=== PATIENT | female | born 1985 ===

== ENCOUNTER 2018-03-30 16:09 | Emergency (ER) | payer MEDICAID, OTHER ==
[2018-03-30 16:09] VITALS: BMI 36.1
[2018-03-30 16:27] VITALS: BP 101/66; PULSE 51; RESP 16; O2SAT 100
[2018-03-30] MEDS ORDERED: Oxycodone/Acetaminophen 5/325 mg Tab PO STA (16:46)
--- NOTE | 2018-03-30 16:51 | ED PDOC ---
Upper Extremity Pain/Injury Time Seen by Provider: 03/30/18 16:43 Chief Complaint (Nursing): Finger,Hand,&Wrist Chief Complaint (Provider): Hand pain History Per: Patient History/Exam Limitations: no limitations Current Symptoms Are (Timing): Still Present Additional Complaint(s): 32 year old female presented to ED with jammed finger on right hand after playing with her children. Patient reports she is unable to bend the 5th finger due to pain. PCP: none provided Past Medical History Reviewed: Historical Data, Nursing Documentation, Vital Signs Vital Signs: Last Vital Signs Temp 97.9 F 03/30/18 16:22 Pulse 51 L 03/30/18 16:22 Resp 16 03/30/18 16:22 BP 101/66 03/30/18 16:22 Pulse Ox 100 03/30/18 16:22 - Medical History PMH: Arthritis Denies: Depression - Surgical History Surgical History: No Surg Hx - Family History Family History: States: Unknown Family Hx - Social History Current smoker - smoking cessation education provided: No Ex-Smoker (has not smoked in the last 12 months): Yes Alcohol: None Drugs: Denies - Immunization History Hx Tetanus Toxoid Vaccination: No Hx Influenza Vaccination: No Hx Pneumococcal Vaccination: No - Home Medications Home Medications: Ambulatory Orders Medication Instructions Recorded Acetaminophen/Codeine 1 tab PO Q6H PRN #12 tab 04/09/15 [Tylenol/Codeine 300 MG/30 MG] Ibuprofen 800 mg PO Q6 04/09/15 Cephalexin [Keflex] 500 mg PO TID #21 .8 06/14/15 Ibuprofen 600 mg PO Q6 #20 tab 06/14/15 oxyCODONE/Acetaminophen [Percocet 1 tab PO QID PRN #15 tab 05/04/16 5/325 mg Tab] Acetaminophen [Tylenol 325mg tab] 650 mg PO Q4 PRN #20 tab 06/22/16 Amoxicillin 875 mg PO BID #14 tablet 06/22/16 oxyCODONE/Acetaminophen [Percocet 1 ea PO Q6 PRN #10 tab 03/30/18 5/325 mg Tab] - Allergies Allergies/Adverse Reactions: Allergies Allergy/AdvReac Type Severity Reaction Status Date / Time shellfish derived Allergy Severe ANAPHYLAXIS Verified 06/22/16 12:41 ibuprofen [From Motrin] AdvReac VOMITING Verified 03/30/18 16:21 naproxen AdvReac VOMITING Verified 03/30/18 16:21 Review of Systems ROS Statement: Except As Marked, All Systems Reviewed And Found Negative Musculoskeletal: Positive for: Hand Pain (right hand pain from jammed finger) Physical Exam - Reviewed Nursing Documentation Reviewed: Yes Vital Signs Reviewed: Yes - Physical Exam Appears: Positive for: Non-toxic, No Acute Distress Head Exam: Positive for: ATRAUMATIC, NORMAL INSPECTION, NORMOCEPHALIC Skin: Positive for: Normal Color, Warm, Dry Eye Exam: Positive for: Normal appearance Neck: Positive for: Normal, Painless ROM Extremity: Positive for: Swelling (and ecchymosis to right hand), Other (pinky flexed at DIP) - ECG O2 Sat by Pulse Oximetry: 100 (RA) Pulse Ox Interpretation: Normal - Progress ED Course And Treament: xry of hand: ? fx noted by PIP. read negative by radiology percocet 5/325 mg x 1 dose Placed in finger splint Medical Decision Making Medical Decision Making: Initial Impression: right hand pain Initial Plan: Oxycodone/acetaminophen 1 tab PO X-ray right hand Scribe Attestation: Documented by Delgado Sanchez acting as a scribe for Connor VITALE. Provider Scribe Attestation: All medical record entries made by the Scribe were at my direction and personally dictated by me. I have reviewed the chart and agree that the record accurately reflects my personal performance of the history, physical exam, medical decision making, and the department course for this patient. I have also personally directed, reviewed, and agree with the discharge instructions and disposition. Disposition - Clinical Impression Clinical Impression: Injury of extensor tendon of right hand, Fracture of middle phalanx of finger of right hand - Patient ED Disposition Is Patient to be Admitted: No - Disposition Referrals: Ani Singh MD [Staff Provider] - Disposition: Routine/Home Disposition Time: 18:01 Condition: FAIR Prescriptions: oxyCODONE/Acetaminophen [Percocet 5/325 mg Tab] 1 ea PO Q6 PRN #10 tab PRN Reason: Pain, Severe (8-10) Instructions: Finger Fracture (DC), Jammed Finger (DC) Forms: [email or web address] (Kazakh)
--- NOTE | 2018-03-30 17:10 | RAD ---
PROCEDURE: Right small finger radiographs. HISTORY: HAND INJURY COMPARISON: None. TECHNIQUE: AP radiograph of the right hand, as well as spot oblique and lateral images of small finger were obtained. FINDINGS: RIGHT SMALL FINGER: Normal right small finger, without fracture or focal lesion. Remainder of the right hand (as seen on the AP view) grossly unremarkable. JOINTS: Normal. SOFT TISSUES: Soft tissue swelling noted about 5th digit. OTHER FINDINGS: None. IMPRESSION: No acute fracture.
[2018-03-30 18:07] VITALS: TEMP 98.1
== END 2018-03-30 18:07 | disposition home or self-care (01) ==
LOC: H.ER 16:09
DX: S62.643A Nondisplaced fracture of proximal phalanx of left middle finger, initial encounter for closed fracture (principal); X50.9XXA Other and unspecified overexertion or strenuous movements or postures, initial encounter; Y92.89 Other specified places as the place of occurrence of the external cause; Z88.6 Allergy status to analgesic agent; Z87.891 Personal history of nicotine dependence

== ENCOUNTER 2018-05-29 13:57 | Emergency (ER) | payer MEDICAID ==
[2018-05-29 13:57] VITALS: BMI 36.1
[2018-05-29 14:40] VITALS: BP 112/62; PULSE 60; RESP 16; TEMP 98.1; O2SAT 100
--- NOTE | 2018-05-29 15:02 | ED PDOC ---
Upper Extremity Pain/Injury Time Seen by Provider: 05/29/18 14:51 Chief Complaint (Nursing): Finger,Hand,&Wrist Chief Complaint (Provider): Right 5th Digit Pain History Per: Patient History/Exam Limitations: no limitations Current Symptoms Are (Timing): Still Present Additional Complaint(s): 33 year old right hand dominant female presents to the emergency department for evaluation of chronic right 5th digit pain. Patient states that two months ago, she injured her right 5th digit and never sought follow up with hand specialist. Patient injured same digit yesterday and now has worsening pain. No meds taken for pain relief. PMD: Dr. Farnsworth [place] Past Medical History Reviewed: Historical Data, Nursing Documentation, Vital Signs Vital Signs: Last Vital Signs Temp 98.1 F 05/29/18 14:37 Pulse 60 05/29/18 14:37 Resp 16 05/29/18 14:37 BP 112/62 05/29/18 14:37 Pulse Ox 100 05/29/18 14:37 - Medical History PMH: Arthritis - Surgical History Surgical History: No Surg Hx - Family History Family History: States: No Known Family Hx - Living Arrangements Living Arrangements: With Family - Social History Current smoker - smoking cessation education provided: No Alcohol: None Drugs: Denies - Home Medications Home Medications: Ambulatory Orders Medication Instructions Recorded Acetaminophen/Codeine 1 tab PO Q6H PRN #12 tab 04/09/15 [Tylenol/Codeine 300 MG/30 MG] Ibuprofen 800 mg PO Q6 04/09/15 Cephalexin [Keflex] 500 mg PO TID #21 .8 06/14/15 Ibuprofen 600 mg PO Q6 #20 tab 06/14/15 oxyCODONE/Acetaminophen [Percocet 1 tab PO QID PRN #15 tab 05/04/16 5/325 mg Tab] Acetaminophen [Tylenol 325mg tab] 650 mg PO Q4 PRN #20 tab 06/22/16 Amoxicillin 875 mg PO BID #14 tablet 06/22/16 oxyCODONE/Acetaminophen [Percocet 1 ea PO Q6 PRN #10 tab 03/30/18 5/325 mg Tab] - Allergies Allergies/Adverse Reactions: Allergies Allergy/AdvReac Type Severity Reaction Status Date / Time shellfish derived Allergy Severe ANAPHYLAXIS Verified 05/29/18 14:37 ibuprofen [From Motrin] AdvReac VOMITING Verified 05/29/18 14:37 naproxen AdvReac VOMITING Verified 05/29/18 14:37 Review of Systems ROS Statement: Except As Marked, All Systems Reviewed And Found Negative Musculoskeletal: Positive for: Hand Pain (right hand pain) Physical Exam - Reviewed Nursing Documentation Reviewed: Yes Vital Signs Reviewed: Yes - Physical Exam Appears: Positive for: Well, Non-toxic, No Acute Distress Head Exam: Positive for: NORMOCEPHALIC Skin: Positive for: Normal Color. Negative for: Rash Eye Exam: Positive for: Normal appearance Neck: Positive for: Normal Extremity: Positive for: Deformity (chronic deformity to right fifth digit consistent with mallet finger), Swelling (minimal to right fifth digit with no erythema). Negative for: Normal ROM (decreased ROM right fifth digit) Neurologic/Psych: Positive for: Alert, Oriented - ECG O2 Sat by Pulse Oximetry: 100 (RA) Pulse Ox Interpretation: Normal Medical Decision Making Medical Decision Making: Time: 14:57 Initial Impression: 33 year old right hand dominant female with right fifth digit pain Initial Plan: --Tylenol 975 mg PO --Right hand XR 3:25 pm: Patient left ED before receiving x-ray. Scribe Attestation: Documented by Patricia Martines, acting as a scribe for Jessie Pereyra PA-C. Provider Scribe Attestation: All medical record entries made by the Scribe were at my direction and personally dictated by me. I have reviewed the chart and agree that the record accurately reflects my personal performance of the history, physical exam, medical decision making, and the department course for this patient. I have also personally directed, reviewed, and agree with the discharge instructions and disposition. Disposition - Clinical Impression Clinical Impression: Right hand pain, Left before treatment completed - Patient ED Disposition Is Patient to be Admitted: No - Disposition Disposition: Left W/O Treatment (Patient left before treatment, x-ray was ordered but not completed.) Disposition Time: 15:26 Condition: UNKNOWN Forms: [employer] (Italian)
== END 2018-05-29 15:05 | disposition left against medical advice (07) ==
LOC: H.ER 13:57
DX: M79.641 Pain in right hand (principal)